=== PATIENT | female | born 1960 | race African-American/Black ===

== ENCOUNTER → 2018-04-16 19:34 | Outpatient (CLI) | payer OTHER ==
[2010-11-14 11:49] VITALS: BMI 38.0
== END | disposition home or self-care (01) ==
LOC: D.MAMMO 03-29 16:00
DX: Z12.31 Encounter for screening mammogram for malignant neoplasm of breast (principal)

== ENCOUNTER → 2019-06-03 08:18 | Outpatient (CLI) | payer MEDICARE, MEDICAID ==
[2010-11-14 11:49] VITALS: BMI 38.0
== END | disposition home or self-care (01) ==
LOC: D.HCCECHO 08:18
PROVIDERS: ATTEND Internal Medicine Cardiovascular Disease
DX: I10 Essential (primary) hypertension (principal); I20.9 Angina pectoris, unspecified

== ENCOUNTER 2019-06-25 11:01 | Outpatient (CLI) | payer MEDICARE, MEDICAID ==
[~2019-06-25] VITALS: Ht 167.6 cm; Wt 87.3 kg
--- NOTE | ~2019-06-25 | HEMODYNAMI ---
PATIENT:REESE MARINA MEDICAL RECORD: [id number] : 58 LOCATION:[facility] ADMISSION DATE: 06/25/19 Generatedon:06/25/201915:39 Patient name: REESE MARINA Patient #: [id number] SSN: : 1960 Date of study: 06/25/2019 Page: Of Hemodynamic Procedure Report Patient Data Patient Demographics Procedure consent was obtained First Name: REESE Gender: Female Last Name: SALAS : 1960 Middle Initial: JANINA Age: 59 year(s) Patient #: [id number] Race: Black Additional ID: [id number] Contact details [address]: [address] [place] [address] State: [place] City: [place] Zip code: [address] Past Medical History Allergies Allergen Reaction Date Comments Reported Other allergy 06/25/2019 IODINE, MOTRIN, PCN Admission Admission Data Admission Date: 06/25/2019 Admission Time: 11:01 Arrival Date: 06/25/2019 Arrival Time: 0:00 Height (in.): 66 BSA: 2.11 (m2) Height (cm.): 167.64 BMI: 36.48 (kg/m2) Weight (lbs.): 226 Weight (kg.): 102.51 Lab Results Lab Result Date: 06/25/2019 Lab Result Time: 0:00 Biochemistry Name Units Result Min Max BUN mg/dl 33 --(----)-* 7 18 Creatinine mg/dl 1.8 --(----)-* 0.6 1.3 eGFR ml/min 37 *-(----)-- 90 120 AM CBC Name Units Result Min Max Hematocrit % 37.2 *-(----)-- 42 54 Hemoglobin g/dl 12.4 *-(----)-- 13.5 17.5 Procedure Procedure Types Cath Procedure Diagnostic Procedure [facility] w/Coronaries Sedation Charges Moderate Sedation up to 15 minutes Moderate Sedation up to 30 minutes PCI Procedure Coronary Stent Coronary Stent Initial Procedure Description Procedure Date Procedure Date: 06/25/2019 Procedure Start Time: 15:10 Procedure End Time: 15:37 Procedure Staff Name Function Lucio Colbert MD Performing Physician Daysi Welch RT Monitor Sarai Hodge RT Scrub Drew Rowley RN Nurse Procedure Data Cath Procedure Fluoroscopy Diagnostic fluoroscopy Total fluoroscopy Time: 4.6 time: 4.6 min min Diagnostic fluoroscopy Total fluoroscopy dose: dose: 1275 mGy 1275 mGy Contrast Material Contrast Material Type Amount (ml) Isovue 300 103 Entry Location Entry Primary Successful Side Size Upsize Upsize Entry Closure Succes sful Closure Location (Fr) 1 (Fr) 2 (Fr) Remarks Device Remarks Femoral Right 5 Fr 6 Fr Exoseal artery Short Estimated blood loss: 10 ml Diagnostic catheters Device Type Used For End Catheter Placement MULTIPACK JL 4.0 5Fr Procedure catheter MULTIPACK 3DRC 5Fr Procedure catheter MULTIPACK Pigtail 5 Fr Ventriculography catheter Procedure Complications No complications Procedure Medications Medication Administration Route Dosage Oxygen etCO2 Nasal cannula 2 l/min Lidocaine 2% added to field 20 Heparin Flush Bag added to field 2 bags (1000units/500ml NS) 0.9% NaCl I.V. 100 ml/hr Versed I.V. 1 mg Fentanyl I.V. 50 mcg Versed I.V. 1 mg Fentanyl I.V. 50 mcg Heparin Bolus I.V. 8500 units Fentanyl I.V. 50 mcg Plavix P.O. 600 mg Clonidine P.O. 0.1 mg Hemodynamics Rest BSA: 2.11 (m2) HGB: 12.4 (g/dl) O2 Consumption: Estimated: 286.96 (ml/min) O2 Co nsumption indexed: Estimated:136 (ml/min/m) Heart Rate: 0 (bpm) Pressure Samples Time Site Value (mmHg) Purpose Heart Use Rate(bpm) 15:16 LV 203/-4,13 Snapshot 75 15:16 LV 204/-4,11 Snapshot 75 15:17 AO 200/91(136) Pullback 75 15:17 LV 203/-5,13 Pullback 75 Gradients Valve Time Site 1 Site 2 Mean SEP/DFP Peak To Heart Use (mmHg) (sec/min) Peak Rate (mmHg) (bpm) Aortic 15:17 LV AO 11 19 3 75 203/-5,13 200/91(136) Calculations Valve P-P Mean Valve Index Valve Source Name Gradient Area Flow (cm2) Aortic 3 11 3 11 Snapshots Pre Cath Intra NCS Post Cath Vital Signs Time Heart Resp SPO2 etCO2 NIBP (mmHg) Rhythm Pain Sedation Rate (ipm) (%) (mmHg) Status Level (bpm) 15:03:40 66 10 99 28.1 200/96(156) NSR 0 (11) 10(A) , No pain 15:08:10 61 17 96 31.9 191/93(152) NSR 0 (11) 10(A) , No pain 15:13:44 73 10 96 38.1 198/102(154) NSR 0 (11) 10(A) , No pain 15:18:18 75 5 97 38.8 203/102(157) NSR 0 (11) 10(A) , No pain 15:22:49 71 19 96 39.6 187/91(135) NSR 0 (11) 10(A) , No pain 15:27:17 75 17 96 40.3 179/98(148) NSR 0 (11) 10(A) , No pain 15:32:57 87 13 98 38 213/112(139) NSR 0 (11) 10(A) , No pain 15:37:42 82 8 97 34.3 219/111(178) NSR 0 (11) 10(A) , No pain Medications Time Medication Route Dose Verified Delivered Reason Notes Effectiveness by by 15:01:17 Oxygen etCO2 2 Lucio Buffie used for Nasal l/min Filemon Rowley RN procedure cannula 15:01:25 Lidocaine 2% added 20ml Lucio Lucio for local to vial Filemon Colbert MD anesthetic field 15:01:32 Heparin Flush added 2 Lucio Lucio used for Bag to bags Filemon Colbert MD procedure (1000units/500ml field NS) 15:01:41 0.9% NaCl I.V. 100 Lucio Buffie Per physician ml/hr Filemon Rowley RN 15:07:11 Versed I.V. 1 mg Lucio Buffie for sedation Filemon Rowley RN 15:07:17 Fentanyl I.V. 50 Lucio Buffie for sedation mcg Filemon Rowley RN 15:11:25 Versed I.V. 1 mg Lucio Buffie for sedation Filemon Rowley RN 15:11:30 Fentanyl I.V. 50 Lucio Buffie for sedation mcg Filemon Rowley RN 15:18:33 Fentanyl I.V. 50 Lucio Buffie for sedation mcg Filemon Rowley RN 15:21:27 Heparin Bolus I.V. 8500 Lucio Buffie for units Filemon Rowley RN anticoagulation 15:36:16 Plavix P.O. 600 Lucio Buffie for mg Filemon Rowley RN antiplatelet therapy 15:39:16 Clonidine P.O. 0.1 Lucio Buffie for mg Filemon oRwley RN hypertension Procedure Log Time Note 14:40:25 Drew Rowley RN sent for patient. Start room use. 14:46:01 Informed consent obtained and on chart 14:46:19 Procedure Status Elective Heart Cath (OP). 14:46:21 Time tracking: Regular hours (M-F 7:00 - 5:00) 14:46:23 Plan of Care:Hemodynamics will remain stable., Cardiac rhythm will remain stable., Comfort level will be maintained., Respiratory function will remain adequate., Patient/ family verbilizes understanding of procedure., Procedure tolerated without complication., Recovers from procedure without complications.. 14:46:47 H&P Date Dictated: 05/16/2019 Within 30 days and on chart., H&P Addendum completed by physician on day of procedure. (MUST COMPLETE FOR ALL OUTPATIENTS). 14:47:02 Patient allergic to Other allergyIODINE, MOTRIN, PCN 14:49:01 Lab Result : BUN 33 mg/dl 14:49:01 Lab Result : Creatinine 1.8 mg/dl 14:49:01 Lab Result : eGFR AM 37 ml/min 14:49:01 Lab Result : Hemoglobin 12.4 g/dl 14:49:01 Lab Result : Hematocrit 37.2 % 14:51:26 Risk of Mortality: .5 14:51:29 Risk of blood transfusion: .7 14:51:32 Risk of JOSH: 3.8 14:51:52 Patient Weight : 226 lbs 14:51:57 Patient Height : 66 inches 14:51:59 Arrival Date: 06/25/2019 12:00:00 AM 14:54:40 Patient received from Pre/Post Procedure Room to [facility] 2 Alert and oriented. Tansferred to table in Supine position. 14:54:42 Warm blankets applied, and tati hugger turned on for patient comfort. 14:54:42 Correct patient and procedure confirmed by team. 14:54:42 ECG and BP/O2 sat monitors applied to patient. 15:01:17 Oxygen 2 l/min etCO2 Nasal cannula was administered by Drew Rowley RN; used for procedure; Verbal order read back and verified. 15:01:20 Vital chart was started 15::23 Baseline sample Acquired. 15::25 Lidocaine 2% 20ml vial added to field was administered by Lucio Colbert MD; for local anesthetic; Verbal order read back and verified. 15::25 Baseline sample Acquired. 15:01:32 Heparin Flush Bag (1000units/500ml NS) 2 bags added to field was administered by Lucio Colbert MD; used for procedure; Verbal order read back and verified. 15:01:41 0.9% NaCl 100 ml/hr I.V. was administered by Drew Rowley RN; Per physician; Verbal order read back and verified. 15:01:44 Baseline sample Acquired. 15:02:10 Rhythm: sinus rhythm 15:02:11 Full Disclosure recording started 15:02:14 Family in patients room. 15:02:19 Is the patient allergic to Iodine/contrast media? Yes. 15:02:20 Was the patient premedicated? Yes 15:02:23 Is patient on blood thinner?No 15:02:36 Patient diabetic? Yes. 15:02:40 Snore? Yes 15:02:44 Sleep apnea? Unknown 15:02:52 Airway obstruction? Yes asthma 15:02:59 Dentures? Yes patials tight 15:03:04 Patient pain scale 0/10 ?. 15:03:09 IV patent on arrival in right forearm with 0.9% NaCl at [facility]. 15:03:14 Lab results completed and on chart. 15:03:19 Right groin area was prepped with chlora-prep and draped in sterile fashion 15::22 Alarms reviewed by R. N. 15:03:22 Sharps counted by scrub and verified by R.N. 15::23 Physician paged 15:03:24 Physician arrived 15::25 --------ALL STOP TIME OUT------ 15:: Final Timeout: patient, procedure, and site verified with staff and physician. All members of the team are in agreement. 15:03:29 Right groin site verified by team. 15:03:33 Fire Safety Assessment: A--An alcohol-based skin anteseptic being used preoperatively., C--Open oxygen or nitrous oxide is being used., D--An ESU, laser, or fiber-optic light is being used. 15:03:38 Sedation plan: IV Moderate Sedation Medication:Versed, Fentanyl 15:03:42 Use device set Femoral Dx 15:04:04 ACIST Syringe (26828) opened to sterile field. 15:04:05 Bag Decanter (2002S) opened to sterile field. 15:04:05 Medline Cath Pack ([id number]) opened to sterile field. 15:04:06 ACIST Hand Control (44302) opened to sterile field. 15:04:06 ACIST Manifold (44888) opened to sterile field. 15:04:07 DIAGNOSTIC Multipack 5Fr catheter set (HX9464) opened to sterile field. 15:04:09 Tegaderm 4 x 4 (1626W) opened to sterile field. 15:04:31 SHEATH 5FR Tyler (PKD185) opened to sterile field. 15:04:36 EMERALD Guide Wire (016-848) opened to sterile field. 15:07:11 Versed 1 mg I.V. was administered by Drew Rowley RN; for sedation; Verbal order read back and verified. 15:07:16 Procedure started. 15:07:17 Fentanyl 50 mcg I.V. was administered by Drew Rowley RN; for sedation; Verbal order read back and verified. 15:10:25 Local anesthetic to right femoral artery with Lidocaine 2% by Lucio Colbert MD.INITIAL ACCESS ONLY 15:10:34 A 5 Fr sheath was inserted into the Right Femoral artery 15:11:07 A MULTIPACK JL 4.0 5Fr catheter was advanced over the wire and used for Procedure. 15:11:09 LCA angiography performed. 15:11:25 Versed 1 mg I.V. was administered by Drew Rowley RN; for sedation; Verbal order read back and verified. 15:11:30 Fentanyl 50 mcg I.V. was administered by Drew Rowley RN; for sedation; Verbal order read back and verified. 15:12:41 Catheter removed. 15:12:48 A MULTIPACK 3DRC 5Fr catheter was advanced over the wire and used for Procedure. 15:13:33 RCA angiography performed. 15:15:10 TUBING High Pressure Extension Tubing (Colbert) ([id number]) opened to sterile field. 15:15:12 BMW 300cm [place] 2 J wire ([id number]) opened to sterile field. 15:15:13 INFLATOR Merit BasixCompak (PT7155) opened to sterile field. 15:15:19 SHEATH 6FR Tyler (GFV946) opened to sterile field. 15:15:28 Catheter removed. 15:15:45 A MULTIPACK Pigtail 5 Fr catheter was advanced over the wire and used for Ventriculography. 15:16:14 GUIDE 6FR XBLAD 3.5 catheter ([id number]) opened to sterile field. 15:16:50 EF : 55 % 15:17:10 LV gram done using [place] 15:17:14 Catheter removed. 15:17:22 Proceeding to intervention. 15:17:30 Sheath upsized to a 6 Fr Short. 15:18:33 Fentanyl 50 mcg I.V. was administered by Drew Rowley RN; for sedation; Verbal order read back and verified. 15:18:54 6 Fr XBLAD3.5 guide catheter was inserted over the wire 15:19:25 BMW wire advanced. 15:21:27 Heparin Bolus 8500 units I.V. was administered by Drew Rowley RN; for anticoagulation; Verbal order read back and verified. 15:30:16 Place stent Inflation Number: 1 A ESTHER RX 3.0 x 15 stent ([id number]) was prepped and advanced across the Prox LAD 80. The stent was deployed at 16 YAIR for 0:15 (min:sec) 0. 15:31:59 EXOSEAL 6Fr (EX600) opened to sterile field. 15:32:15 ACT drawn and resulted at 322 seconds. (normal therapeutic range 180-240 seconds). 15:32:30 Sheath removed intact; hemostasis achieved with Exoseal to the Right Femoral artery. 15:32:34 Procedure ended.(Physican Out) 15:34:05 Fluoroscopy time 04.60 minutes. 15:34:10 Fluoroscopy dose: 1275 mGy 15:34:10 Flurop Dose total: 1275 15:34:15 Dose Area Product 79522 mGy/cm. 15:34:24 Contrast amount:Isovue 300 103ml. 15:34:29 Maximum allowable dose exceeded? No. 15:34:30 Sharps counted by scrub and verified by R.N. 15:34:33 Insertion/operative site no bleeding no hematoma. 15:35:14 Post right femoral artery:stable 15:35:16 Post Procedure Pulses reassessed and unchanged 15:35:19 Post procedure rhythm: unchanged. 15:35:23 Estimated blood loss: 10 ml 15:35:27 Post procedure instruction explained to patient.Patient verbalizes understanding. 15:35:58 Procedure type changed to Cath procedure, Diagnostic procedure, LHC, [facility] w/Coronaries, Sedation Charges, Moderate Sedation up to 15 minutes, Moderate Sedation up to 30 minutes, PCI procedure, Coronary Stent, Coronary Stent Initial 15:36:02 Procedure and supply charges have been captured, reviewed, submitted and are correct. 15:36:16 Plavix 600 mg P.O. was administered by Drew Rowley RN; for antiplatelet therapy; Verbal order read back and verified. 15:36:52 Procedure Complication : No complications 15:36:56 Vital chart was stopped 15:37:02 [facility] Findings: MVD- PCI performed (see procedure note) 15:37:04 Operative report dictated upon procedure completion. 15:37:05 See physician's report for complete and final results. 15:37:07 Report given to Pre/Post Procedure Room. 15:37:10 Patient transfered to Pre/Post Procedure Room with Stretcher. 15:37:12 Procedure ended. 15:37:12 Full Disclosure recording stopped 15:37:29 ACC-PCI Only Patient was given prescriptions, or instructed by Lucio Colbert MD to start/continue the following medications upon discharge: Plavix 15:37:32 End room use (Document Last) 15:38:37 End room use (Document Last) 15:39:03 End room use (Document Last) 15:39:16 Clonidine 0.1 mg P.O. was administered by Drew Rowley RN; for hypertension; Verbal order read back and verified. Intervention Summary Intervention Notes Time ActionType Lesion and Equipment Used Action# Pressure Duration Attributes 15:30:[address] stent Prox LAD ESTHER RX 3.0 x 1 16 00:15 15 stent ([id number]) Device Usage Item Name Manufacture Quantity Catalog Hospital Part [facility] Lot# / Number Charge Number Stock Stock Serial# Code ACIST Syringe Acist 1 55426 020555 046457 292681 20 (27794) Medical Systems Inc Bag Decanter Microtek 1 2001S 067689 06620 391407 5 () Medical Inc. Medline Cath Medline 1 [id number] 850895 26617 420772 5 Pack ([id number]) ACIST Hand Acist 1 07985 922850 620375 635454 5 Control Medical (83823) Systems Inc ACIST Manifold Acist 1 88150 809195 334783 474578 5 (18886) Medical Systems Inc DIAGNOSTIC Cardinal 1 [id number] 946049 48504 016398 30 Multipack 5Fr Health catheter set (HB0885) Tegaderm 4 x 4 3M 1 1626W 191454 502459 233108 5 (1626W) SHEATH 5FR Terumo 1 CNY398 944276 604423 645869 5 Tyler (NNF798) EMERALD Guide Cardinal 1 502-455 315634 564394 363411 5 Wire (502-455) Health MULTIPACK JL Cardinal 1 992963 5 4.0 5Fr Health catheter MULTIPACK 3DRC Cardinal 1 804671 5 5Fr catheter Health TUBING High Merit 1 [id number] 135597 73294 513409 10 Pressure Medical Extension Tubing (Colbert) (AY9346F) BMW 300cm Gracia 1 [id number] 337831 170855 483781 5 [place] 2 J Vascular wire (1949201B) INFLATOR Merit Merit 1 QJ6069 256597 214992 007790 15 BasixCompak Medical (PQ8736) SHEATH 6FR Terumo 1 FCW453 668913 081750 823705 40 Tyler (PNU488) MULTIPACK Cardinal 1 319333 5 Pigtail 5 Fr Health catheter GUIDE 6FR Cardinal 1 [id number] 404067 531353 060595 10 XBLAD 3.5 Health catheter ([id number]) ESTHER RX 3.0 x Medtronic 1 [id number] 809666 9267924 558817 5 [id number] 15 stent ([id number]) EXOSEAL 6Fr Cardinal 1 EX600 488403 615298 842915 10 (EX600) Health Signature Audit [place] Stage Time Signature Unsigned Intra-Procedure 06/25/2019 Daysi Welch 3:38:38 PM RT(R) Intra-Procedure 06/25/2019 Drew Rowley RN 3:39:03 PM Intra-Procedure 06/25/2019 Lucio Colbert MD 3:39:41 PM Signatures Performing Physician : Signature : Lucio Colbert MD Date : Time : Monitor : Daysi Welch Signature : RT Date : Time : Nurse : Drew Rowley RN Signature : Date : Time : [address] [place] [address]
[2019-06-25] MEDS ORDERED: LIPITOR10 MG PO (11:29)
[2019-06-25] MEDS ORDERED: CATAPRES0.2 MG PO (11:29)
[2019-06-25] MEDS ORDERED: CATAPRES TTS-10.1 MG TD (11:30)
[2019-06-25] MEDS ORDERED: PREDNISONE20 MG PO (11:31)
[2019-06-25] MEDS ORDERED: FUROSEMIDE20 MG PO (11:31)
[2019-06-25] MEDS ORDERED: HYDRALAZINE HCL10 MG PO (11:31)
[2019-06-25] MEDS ORDERED: ZANAFLEX4 MG PO (11:32)
[2019-06-25] MEDS ORDERED: HYZAAR 50-12.51 TAB PO (11:32)
[2019-06-25] MEDS ORDERED: HUMALOG 30100 UNITS/ SC (11:33)
[2019-06-25] MEDS ORDERED: LEVEMIR FL100 UNIT/1 SC (11:34)
[2019-06-25 11:49] VITALS: BP 198/77; Ht 167.6 cm; Wt 87.3 kg
[2019-06-25 12:09] LABS: BASOPHILS 0.1 % (0-2); EOSINOPHILS 0 % (0-7); HEMATOCRIT 37.2 % (36.0-48.0); HEMOGLOBIN 12.4 g/dL (12-16); IMMATURE GRANULOCYTES 0.5 % (0-5); LYMPHOCYTES 7.9 % (15-50); MCH 27.2 pg (26.0-34.0); MCHC 33.3 g/dL (31.0-37.0); MCV 81.6 fL (80.0-100.0); MEAN PLATELET VOLUME 10.5 fL (7.4-10.4); MONOCYTES 0.9 % (2-11); NEUTROPHILS 90.6 % (40-80); RBC 4.56 10x6/uL (4.00-5.40); RDW 13.7 % (11.5-14.5); WBC 9.5 10x3/uL (4.8-10.8)
[2019-06-25 12:10] LABS: PLATELET COUNT 329 10x3/uL (130-400)
[2019-06-25 12:36] LABS: ANION GAP 15.1 mmol/L (8-16); CALCIUM 9.1 mg/dL (8.5-10.1); CARBON DIOXIDE 23.5 mmol/L (21.0-32.0); CHOL - HDL RATIO 4.1 ratio (2.3-4.1); CREATININE - SERUM 1.8 mg/dL (0.6-1.3); LDL-HDL RATIO 2.9 ratio (1.5-3.5); POTASSIUM - SERUM 4.6 mmol/L (3.5-5.1)
--- NOTE | 2019-06-25 15:55 | NUR ---
REC TO ROOM VIA STRETCHER. MONITORING INITIATED. R GROIN SOFT, NO BLEEDING OR HEMATOMA. RPPP. INSTRUCTED TO KEEP LEG STRAIGHT AND STILL, HEAD ON PILLOW, AND TO SUPPORT R GROIN W HAND WHEN COUGHING. PEGGY SIPS OF WATER. DTR AT BEDSIDE. VSS, HR 91, BP 214/112 AND WAS MEDICATED W CLONIDINE AT 1545 IN GRADUATE RECRUITER. CONT TO MONITOR.
--- NOTE | 2019-06-25 16:10 | NUR ---
R GROIN CDI, SOFT. NO BLEEDING OR HEMATOMA. PPP. INSTRUCTED PT AND FAMILY THAT BLOOD GLUCOSE MAY BE MANAGED AT HOME. BED REPOSITIONED FOR RELIEF OF BACK DISCOMFORT BY RAISING KNEES MECHANICALLY. VSS, HR 77, BP 210/102.
--- NOTE | 2019-06-25 16:40 | NUR ---
R GROIN CDI, SOFT. NO BLEEDING OR HEMATOMA. PPP. CONT TO C/O BACK PAIN STATES IS HER CHRONIC PAIN, SEE EMAR.
--- NOTE | 2019-06-25 16:55 | NUR ---
R GROIN CDI, SOFT. NO BLEEDING OR HEMATOMA. PPP. HR 66, NIBP 197/93.
--- NOTE | 2019-06-25 17:11 | NUR ---
R GROIN CDI, SOFT. NO BLEEDING OR HEMATOMA. PPP. VSS, HR 65 NSR, BP 180/84. FAMILY AT BEDSIDE, ASSISTING W DRINKING AND APPLESAUCE.
[2019-06-25] MEDS ORDERED: PLAVIX75 MG PO (17:19)
--- NOTE | 2019-06-25 17:40 | NUR ---
R GROIN CDI, SOFT. NO BLEEDING OR HEMATOMA. PPP. VSS, HR NSR 67, NIBP 185/87. STATES CHRONIC BACK PAIN IMPROVED AFTER PAIN MED.
--- NOTE | 2019-06-25 18:20 | NUR ---
C/O DISCOMFORT L SHOULDER, LOW BACK. REPOSITIONED W HOB UP 15*. R GROIN SOFT, NO BLEEDING/HEMATOMA.
--- NOTE | 2019-06-25 18:39 | NUR ---
HOB UP TO 20*. PROVIDED SANDWICH AND DIET SODA. PT CHECKING FSBS, 349. DOSING W HOME HUMALOG [address] MAGANA'S ORDER TO TREAT AT HOME. R GROIN SOFT, CDI, NO BLEEDING OR HEMATOMA. PPP. HR NSR 64, NIBP 176/86.
--- NOTE | 2019-06-25 19:28 | NUR ---
191 PT GROIN SOFT, NONTENDER, CDI. NO BLEEDING OR HEMATOMA.IV DC TIP INTACT, MONITORING DISCONTINUED. ASSISTED TO SIDE OF BED, DTR ASSISTED TO DRESS. 1919 WALKED W PT TO RESTROOM, BACK TO ROOM. 1927 DISCHARGE TEACHING REVIEWED INCLUDING PLAVIX NEW DAILY MEDICATION AND F/U APPT WITH DR MAGANA/JUAN J MATTHEWS APN. PT DC HOME VIA PRIVATE CAR W DTR, PT HAS ALL BELONGINGS.
== END 2019-06-25 19:30 | disposition home or self-care (01) ==
LOC: D.CATH 11:01
PROVIDERS: ATTEND Internal Medicine Cardiovascular Disease
DX: I20.9 Angina pectoris, unspecified (principal); R94.30 Abnormal result of cardiovascular function study, unspecified; Z01.818 Encounter for other preprocedural examination; E11.9 Type 2 diabetes mellitus without complications; Z79.4 Long term (current) use of insulin; I10 Essential (primary) hypertension; R07.9 Chest pain, unspecified; R94.31 Abnormal electrocardiogram [ECG] [EKG]

== ENCOUNTER 2019-07-31 19:55 | Inpatient (IN) | payer MEDICARE, MEDICAID ==
[2019-07-31] VITALS (12 sets, daily range): BP systolic 204–266; BP diastolic 83–121; BMI 36.3
[~2019-07-31] VITALS: Ht 167.6 cm; Wt 101.7 kg
[~2019-07-31 19:55] MED LIST: CATAPRES TTS-10.1 MG TD; CATAPRES0.2 MG PO; FUROSEMIDE20 MG PO; HUMALOG 30100 UNITS/ SC; HYDRALAZINE HCL10 MG PO; HYZAAR 50-12.51 TAB PO; LEVEMIR FL100 UNIT/1 SC; LIPITOR10 MG PO; PLAVIX75 MG PO; PREDNISONE20 MG PO; ZANAFLEX4 MG PO
[2019-07-31] MEDS ORDERED: TOPROL XL50 MG PO (20:08)
[2019-07-31] MEDS ORDERED: LIPITOR10 MG PO (20:08)
[2019-07-31] MEDS ORDERED: NORVASC10 MG PO (20:09)
[2019-07-31] MEDS ORDERED: VICTOZA0.6 MG/0.1 SQ (20:11)
--- NOTE | 2019-07-31 20:22 | NUR ---
FSBS 88 AT THIS TIME. EDP NOTIFIED.
[2019-07-31 20:28] LABS: BASOPHILS 0.5 % (0-2); EOSINOPHILS 10.2 % (0-7); HEMATOCRIT 35.2 % (36.0-48.0); HEMOGLOBIN 11.5 g/dL (12-16); IMMATURE GRANULOCYTES 0.1 % (0-5); LYMPHOCYTES 40.8 % (15-50); MCH 26.8 pg (26.0-34.0); MCHC 32.7 g/dL (31.0-37.0); MCV 82.1 fL (80.0-100.0); MEAN PLATELET VOLUME 10.1 fL (7.4-10.4); NEUTROPHILS 39.4 % (40-80); PLATELET COUNT 266 10x3/uL (130-400); RBC 4.29 10x6/uL (4.00-5.40); RDW 13.9 % (11.5-14.5); WBC 7.4 10x3/uL (4.8-10.8)
[2019-07-31 20:37] LABS: CALC OSMOLALITY 284 mosm/kg (275-300); CARBON DIOXIDE 26.3 mmol/L (21.0-32.0); CHLORIDE - SERUM 105 mmol/L (98-107); CREATININE - SERUM 1.9 mg/dL (0.6-1.3); POTASSIUM - SERUM 3.6 mmol/L (3.5-5.1); SODIUM 140 mmol/L (136-145); UREA NITROGEN 30 mg/dL (7-18); eGFR NON AFRICAN AMERICAN 28 mL/min (90-120)
[2019-07-31 20:39] LABS: GLUCOSE 91 mg/dL (74-106)
[2019-07-31 20:49] LABS: APTT 28.2 SECONDS (22.8-39.4); INR 0.96 (0.85-1.17); PROTIME 12.8 SECONDS (11.6-15.0)
--- NOTE | 2019-07-31 20:59 | NUR ---
FSBS 72 AT THIS TIME. EDP NOTIFIED
[2019-07-31 21:00] LABS: ALBUMIN 3.2 g/dL (3.4-5.0); ALKALINE PHOSPHATASE 85 U/L (46-116); ALT (SGPT) 23 U/L (10-68); BILIRUBIN - TOTAL 0.25 mg/dL (0.2-1.3); CKMB 0.5 U/L (0.0-3.6); CREATINE KINASE 69 UL (21-215); PROTEIN - SERUM 7.2 g/dL (6.4-8.2); THYROID STIMULATING HORMONE 2.09 uIU/mL (0.36-3.74)
[2019-07-31 21:02] LABS: TROPONIN-I < 0.017 ng/mL (0.000-0.060)
--- NOTE | 2019-07-31 23:20 | NUR ---
REPORT RECEIVED. PT ARRIVED TO ICU ACCOMPANIED BY ER STAFF. PIV IN RT AC AND LT WRIST INFUSING, SEE IV FLOWSHEET. ASSESSMENT COMPLETED, SEE FLOWSHEET. PT ON ROOM AIR, C/O HEADACHE, N&V. WILL CONTINUE TO MONITOR.
[2019-08-01] VITALS (40 sets, daily range): BP systolic 137–246; BP diastolic 65–121; Ht 167.6 cm; Wt 101.7 kg
--- NOTE | 2019-08-01 01:00 | NUR ---
PT RESTING IN BED, CONTINUES TO HAVE C/O HEADACHE. FAMILY IN WAITING ROOM, UPDATED ON STATUS. WILL CONTINUE TO MONITOR.
--- NOTE | 2019-08-01 03:00 | NUR ---
DR CRUZ PAGED REGARDING BP, UPDATED ON STATUS, NEW ORDERS RECEIVED.
--- NOTE | 2019-08-01 05:00 | NUR ---
PT RESTING IN BED, HEADACHE STILL PRESENT. WILL CONTINUE TO MONITOR AND TREAT.
[2019-08-01 12:14] LABS: % SATURATION 19 % (15-55); IRON 44 ug/dl (35-150); TOTAL IRON BIND CAPACITY 231 ug/dl (260-445); UNSAT IRON BIND CAPACITY 187 ug/dl (150-375)
--- NOTE | 2019-08-01 16:47 | NUR ---
LEFT HAND PIV REMOVED. NO LONGER PATENT. TIP INTACT. PT ASSISTED UP TO URINATE. SAMPLE OBTAINED.
[2019-08-01 17:44] LABS: APPEARANCE SL CLDY (CLEAR); BILIRUBIN NEGATIVE (NEGATIVE); COLOR YELLOW (YELLOW); GLUCOSE 1000 mg/dL (NEGATIVE); KETONE NEGATIVE (NEGATIVE); NITRITE NEGATIVE (NEGATIVE); PROTEIN 1+ mg/dL (NEGATIVE); SPECIFIC GRAVITY 1.025 (1.005-1.020); UROBILINOGEN NORMAL (NORMAL)
[2019-08-01 17:46] LABS: BACTERIA MANY /hpf (NEGATIVE); RED CELLS - URINE RARE /hpf (0-5); WHITE CELLS - URINE 0-5 /hpf (NEGATIVE)
[2019-08-01 17:57] LABS: UDS - AMPHET NEGATIVE QUAL (NEGATIVE); UDS - BARB NEGATIVE QUAL (NEGATIVE); UDS - BENZO NEGATIVE QUAL (NEGATIVE); UDS - COCAINE NEGATIVE QUAL (NEGATIVE); UDS - OPIATE POSITIVE QUAL (NEGATIVE); UDS - PCP NEGATIVE QUAL (NEGATIVE); UDS - THC NEGATIVE QUAL (NEGATIVE)
--- NOTE | 2019-08-01 20:07 | NUR ---
report called to maral on med2. room being cleaned at this time.
[2019-08-02] VITALS: BP 172/64
[2019-08-02 04:00] VITALS: BP 178/69
--- NOTE | 2019-08-02 05:01 | NUR ---
PT CALLED TO SAY SHE FELT LIKE HER SUGAR WAS LOW. FSBS 154. PT GIVEN SNACK. NO S/S INSULIN WILL BE ADMINISTERED SINCE PT IS SYMPTOMATIC AT LESS THAN 200MG.
[2019-08-02 08:24] LABS: BASOPHILS 0.1 % (0-2); EOSINOPHILS 5.1 % (0-7); HEMATOCRIT 32.1 % (36.0-48.0); HEMOGLOBIN 10.6 g/dL (12-16); IMMATURE GRANULOCYTES 0.6 % (0-5); LYMPHOCYTES 23.5 % (15-50); MCH 26.6 pg (26.0-34.0); MCV 80.7 fL (80.0-100.0); MEAN PLATELET VOLUME 10.2 fL (7.4-10.4); MONOCYTES 8.3 % (2-11); NEUTROPHILS 62.4 % (40-80); PLATELET COUNT 187 10x3/uL (130-400); RBC 3.98 10x6/uL (4.00-5.40)
[2019-08-02 08:54] VITALS: BP 178/68
[2019-08-02 08:59] LABS: ANION GAP 16.7 mmol/L (8-16); CALCIUM 8.7 mg/dL (8.5-10.1); CARBON DIOXIDE 22.9 mmol/L (21.0-32.0); CREATININE - SERUM 2.4 mg/dL (0.6-1.3); POTASSIUM - SERUM 4.6 mmol/L (3.5-5.1)
[2019-08-02 12:00] VITALS: BP 179/74
[2019-08-02 16:00] VITALS: BP 176/69
--- NOTE | 2019-08-02 20:00 | NUR ---
REPORT RECIEVED AND INITIAL ROUNDS COMPLETED. PT RESTING IN BED WITH NO DISTRESS. IV TO LEFT A/C WITH NS @ 75ML/HR. SR/60 PER TELEMETRY. ALERT/ORIENTED. NO NEEDS VOICED. CALL LIGHT IN REACH. CPOC.
[2019-08-02 20:30] VITALS: BP 177/79
--- NOTE | 2019-08-02 23:00 | NUR ---
ALL BEDTIME MEDS HAVE BEEN GIVEN. PT RESTING. IVF INFUSING. FSBS 155. NO INSULIN GIVEN SINCE PATIENT FEELS SYMPTOMATIC WHEN LEVELS ARE BELOW 2000. BEDTIME SNACK PROVIDED. CPOC. CALL LIGHT IN REACH.
--- NOTE | 2019-08-03 02:00 | NUR ---
RESTING IN BED. NO DISTRESS. CPOC.
[2019-08-03 04:27] VITALS: BP 195/81
--- NOTE | 2019-08-03 05:15 | NUR ---
RESTING IN BED. NO DISTRESS. CPOC. NO CHANGE FROM INITIAL SHIFT ASSESSMENT.
[2019-08-03 05:39] LABS: BASOPHILS 0.5 % (0-2); EOSINOPHILS 9.5 % (0-7); HEMATOCRIT 30.4 % (36.0-48.0); HEMOGLOBIN 10.1 g/dL (12-16); IMMATURE GRANULOCYTES 0.2 % (0-5); LYMPHOCYTES 27.2 % (15-50); MCH 27.1 pg (26.0-34.0); MCHC 33.2 g/dL (31.0-37.0); MCV 81.5 fL (80.0-100.0); MEAN PLATELET VOLUME 10.1 fL (7.4-10.4); MONOCYTES 9.8 % (2-11); NEUTROPHILS 52.8 % (40-80); RBC 3.73 10x6/uL (4.00-5.40); RDW 14.1 % (11.5-14.5); WBC 5.9 10x3/uL (4.8-10.8)
[2019-08-03 05:42] LABS: PLATELET COUNT 256 10x3/uL (130-400)
[2019-08-03 06:10] LABS: ANION GAP 12.6 mmol/L (8-16); CALCIUM 8.8 mg/dL (8.5-10.1); CARBON DIOXIDE 25.7 mmol/L (21.0-32.0); CREATININE - SERUM 1.9 mg/dL (0.6-1.3); POTASSIUM - SERUM 4.3 mmol/L (3.5-5.1)
[2019-08-03 10:48] VITALS: BP 196/81
[2019-08-03 14:25] VITALS: BP 184/73
[2019-08-03 18:27] VITALS: BP 195/71
--- NOTE | 2019-08-03 19:30 | NUR ---
REPORT AND INITIAL ROUNDS COMPLETED. PT ALERT AND ORIENTED. SR PER TELEMETRY. LEFT A/C PIV WITH NS @ 75ML/HR. PT/FAMILY TEACHING FOR THE PROCESS OF ADDING MEDS SLOWLY PER MD TO TRY AND DEVELOP AN APPROPRIATE BLOOD PRESSURE. DAUGHTER STATES PT ALSO HAD FORGOTTEN TO SAY SHE TAKES PROZAC AND HAS NOT HAD IT FOR 4 DAYS. WILL ADD TO HOME MED LIST AND GET RESTARTED BY MD. CALL LIGHT IN REACH.
[2019-08-03 20:00] VITALS: BP 187/84
[2019-08-03] MEDS ORDERED: PROZAC20 MG PO (20:26)
--- NOTE | 2019-08-03 22:44 | NUR ---
ALL BEDTIME MEDS GIVEN. FSBS 214. S/S INSULIN ADMINISTERED. ALSO TYLENOL PROVIDED FOR HEADACHE. CPOC.
--- NOTE | 2019-08-03 22:47 | NUR ---
ALSO PATIENT TEACHING ON TAKING MACROBID FOR UTI AND TO DRINK PLENTY OF WATER.
[2019-08-04] VITALS: BP 182/76
--- NOTE | 2019-08-04 01:21 | NUR ---
PT AWAKE WITH C/O HEADACHE. SBP >180. TYLENOL HAS NOT IMPROVED HER HEADACHE. MEDICATED WITH MORPHINE 4MG SIVP. MONITOR AND CPOC.
[2019-08-04 04:00] VITALS: BP 177/71
[2019-08-04 04:40] LABS: ANION GAP 13.4 mmol/L (8-16); CALCIUM 8.8 mg/dL (8.5-10.1); CARBON DIOXIDE 26.1 mmol/L (21.0-32.0); CREATININE - SERUM 1.6 mg/dL (0.6-1.3); POTASSIUM - SERUM 4.5 mmol/L (3.5-5.1)
[2019-08-04 04:41] LABS: BASOPHILS 0.6 % (0-2); EOSINOPHILS 4.9 % (0-7); HEMATOCRIT 33.6 % (36.0-48.0); HEMOGLOBIN 10.9 g/dL (12-16); IMMATURE GRANULOCYTES 0.3 % (0-5); LYMPHOCYTES 19.8 % (15-50); MCH 26.7 pg (26.0-34.0); MCHC 32.4 g/dL (31.0-37.0); MCV 82.2 fL (80.0-100.0); MEAN PLATELET VOLUME 10.3 fL (7.4-10.4); MONOCYTES 8.4 % (2-11); PLATELET COUNT 285 10x3/uL (130-400); RBC 4.09 10x6/uL (4.00-5.40); RDW 14.2 % (11.5-14.5); WBC 7.1 10x3/uL (4.8-10.8)
--- NOTE | 2019-08-04 05:15 | NUR ---
PT WAS C/O PAIN/DISCOMFORT/HEADACHE. SBP BACK >180. WHILE TALKING TO PATIENT, SHE VOMITTED UP PEANUT BUTTER AND CRACKERS THAT SHE HAD ATTEMPTED TO SNACK ON. AFTER THAT SHE SAID HER STOMACH FELT BETTER, BUT HER HEAD WAS STILL HURTING. PROVIDED PT WITH HER 0900 DOSE OF CLONIDINE FOR ELEVATED BP, TYLENOL FOR HEADACHE, PROTONIX FOR STOMACH, AND ZANAFLEX FOR MUSCLE/BODY PAIN/DISCOMFORT. PT NOW RESTING IN BED. CALL LIGHT IN REACH.
[2019-08-04 08:17] VITALS: BP 174/72
--- NOTE | 2019-08-04 08:42 | NUR ---
AM MEDS GIVEN AT THIS TIME. PT IN BED, FINISHING HER BREAKFAST. RT FA INFUISNG NS AT 75CC/HR. SWAB CAPS IN PLACE. PT DENIES ANY NEEDS AT THIS TIME. FAMILY AT BEDSIDE, [facility], ANUSHA NOTED,W ILL CONTINUE PLAN OF CARE.
--- NOTE | 2019-08-04 10:50 | NUR ---
SHOWER AND COMPLETE LINEN CHANGE AT THIS TIME.
[2019-08-04] MEDS ORDERED: BAYER CHEWABLE81 MG PO (11:56)
[2019-08-04 12:01] VITALS: BP 155/74
--- NOTE | 2019-08-04 14:17 | NUR ---
Nutrition Follow-up: Noted pt vomited early AM but ate well for breakfast. Diet: Diabetic Low Sodium PO intake: 63% avg x 7 meals Wt: 224.8# (08/01) Last BM: 08/04 Labs noted: Glu 173, K+ 4.5, A1C 9.9 (08/01) Meds noted: NS @ 75, Humalog, Lantus -Continue current diet as tolerated. -Encourage PO intake. -Monitor wt. -RD following.
[2019-08-04 16:00] VITALS: BP 151/80
--- NOTE | 2019-08-04 16:19 | NUR ---
BLOOD SUGAR OF 76, NO COVERAGE NEEDED PER S/S. ALSO DID NOT GIVE 5UNITS OF HUMALOG SCHEDULED WITH MEALS.
--- NOTE | 2019-08-04 17:06 | NUR ---
4MG OF MORPHINE GIVEN FOR PAIN LEVEL OF 3/10. PT DENIES ANY OTHER NEEDS AT THIS TIME. CALL LIGHT IN REACH, NAD NOTED.
--- NOTE | 2019-08-04 19:17 | NUR ---
RECEIVED BEDSIDE REPORT. PATIENT IS ALERT AND ORIENTED, RESTING COMFORTABLY IN BED. RESPIRATIONS ARE EVEN AND UNLABORED. NO S/S OF DISTRESS. NO C/O PAIN. NEEDS MET. CALL LIGHT WITHIN REACH. WILL CPOC.
[2019-08-04 20:16] VITALS: BP 168/79
[2019-08-05] VITALS (7 sets, daily range): BP systolic 175–203; BP diastolic 69–96
[2019-08-05 06:05] LABS: BASOPHILS 0.4 % (0-2); EOSINOPHILS 5.4 % (0-7); HEMATOCRIT 31.3 % (36.0-48.0); IMMATURE GRANULOCYTES 0.3 % (0-5); LYMPHOCYTES 23.6 % (15-50); MCH 26.4 pg (26.0-34.0); MCHC 31.9 g/dL (31.0-37.0); MCV 82.6 fL (80.0-100.0); MEAN PLATELET VOLUME 10.1 fL (7.4-10.4); MONOCYTES 8.8 % (2-11); NEUTROPHILS 61.5 % (40-80); PLATELET COUNT 295 10x3/uL (130-400); RBC 3.79 10x6/uL (4.00-5.40); RDW 14.5 % (11.5-14.5); WBC 6.9 10x3/uL (4.8-10.8)
[2019-08-05 06:28] LABS: CALCIUM 8.2 mg/dL (8.5-10.1); CARBON DIOXIDE 24.3 mmol/L (21.0-32.0); CHOL - HDL RATIO 2.7 ratio (2.3-4.1); CREATININE - SERUM 1.6 mg/dL (0.6-1.3); LDL-HDL RATIO 1.3 ratio (1.5-3.5); POTASSIUM - SERUM 4.3 mmol/L (3.5-5.1)
--- NOTE | 2019-08-05 07:53 | NUR ---
PT C/O OF FEELING SWEATY AND HOT, CHECKED BLOOD SUGAR AND IT WAS 145. PT DENIES ANY NEEDS AT THIS TIME. CALL LIGHT IN REACH, BEDSIDE RAILS X2, FAMILY AT BEDSIDE, NAD NOTED,W ILL CONTINUE TO MONITOR.
--- NOTE | 2019-08-05 09:40 | NUR ---
AM MEDS GIVEN AT THIS TIME. PT A/O X4, RESP EVEN AND NONLABORED ON RA. RT HAND IV INFUSING NS AT 75CC/HR. PT DENIES ANY NEEDS AT THIS TIME. CALL LIGHT IN REACH, NAD NOTED, WILL CONTINUE TO MONITOR.
--- NOTE | 2019-08-05 14:44 | NUR ---
PT C/O HEADACHE, UNABLE TO TAKE TYLENOL BECASUE SHE IS STILL SICK TO HER STOMACH. 4MG OF MORPHINE GIVEN AT THIS TIME, FOR PAIN LEVEL OF 8/10.
--- NOTE | 2019-08-05 16:12 | NUR ---
BLOOD SUGAR OF 119, NO COVERAGE NEEDED PER S/S. PT STILL HAS HEADACHE DOES NOT WANT TO WEAR NITRO PATCH BECAUSE IT'S MAKING HER HEADACHE WORSE. PT DENIES ANY OTHER NEEDS AT THIS TIME. CALL LIGHT IN REACH, ANUSHA NOTED,W ILL CONTINUE TO MONITOR.
--- NOTE | 2019-08-05 19:27 | NUR ---
RECEIVED BEDSIDE REPORT. PATIENT IS RESTING COMFORTABLY IN BED. RESPIRATIONS ARE EVEN AND UNLABORED. NO S/S OF DISTRESS. NO C/O PAIN. NEEDS MET. CALL LIGHT WITHIN REACH. WILL CPOC.
[2019-08-06] VITALS (7 sets, daily range): BP systolic 169–225; BP diastolic 74–95
--- NOTE | 2019-08-06 01:28 | NUR ---
PATIENT RESTING COMFORTABLY IN BED. PATIENT REQUESTING THAT HER NITRO BID IS REMOVED. PATIENT STATES THAT ITS MAKING HER HEADACHE WORSE. NITRO BID REMOVED.
--- NOTE | 2019-08-06 04:13 | NUR ---
PATIENT RESTING COMFORTABLY IN BED. RESPIRATIONS ARE EVEN AND UNLABORED. NO S/S OF DISTRESS. NO C/OPAIN. CALL LIGHT WITHIN REACH. WILL CPOC.
[2019-08-06 06:13] LABS: BASOPHILS 0.4 % (0-2); EOSINOPHILS 2.6 % (0-7); HEMATOCRIT 32.3 % (36.0-48.0); HEMOGLOBIN 10.6 g/dL (12-16); IMMATURE GRANULOCYTES 0.5 % (0-5); LYMPHOCYTES 22.4 % (15-50); MCH 26.9 pg (26.0-34.0); MCHC 32.8 g/dL (31.0-37.0); MEAN PLATELET VOLUME 9.7 fL (7.4-10.4); MONOCYTES 6.7 % (2-11); NEUTROPHILS 67.4 % (40-80); PLATELET COUNT 274 10x3/uL (130-400); RBC 3.94 10x6/uL (4.00-5.40); RDW 14.5 % (11.5-14.5)
[2019-08-06 06:38] LABS: ANION GAP 15.2 mmol/L (8-16); CALCIUM 8.5 mg/dL (8.5-10.1); CARBON DIOXIDE 22.2 mmol/L (21.0-32.0); CREATININE - SERUM 1.7 mg/dL (0.6-1.3); POTASSIUM - SERUM 4.4 mmol/L (3.5-5.1)
--- NOTE | 2019-08-06 08:16 | NUR ---
AM MEDS GIVEN AT THIS TIME. ALSO GAVE 4MG OF ZOFRAN FOR NAUSEA. PT DENIES ANY OTHER NEEDS AT THIS TIME. WILL RECHECK BP IN 1HR TO SEE IF ITS GOING DOWN. CALL LIHGT IN REACH, NAD NOTED,W ILL CONTINUE TO MONITOR.
--- NOTE | 2019-08-06 10:17 | NUR ---
PT RESTING COMFORTABLY IN BED, BP NOW 169/86 WITH RATE OF 77. PT DENIES ANY NEEDS AT THIS TIME. CALL LIGHT IN REACH, NAD NOTED,W ILL CONTINUE TO MONITOR.
--- NOTE | 2019-08-06 15:21 | MORECARE ---
CASE MANAGEMENT DISCHARGE SUMMARY PATIENT: REESE MARINA UNIT: [id number] ADM DATE: 07/31/19 AGE: 59 : 58 SEX: F ROOM/BED: D.0234 AUTHOR: YUNIOR,DOC PHYSICIAN: REFERRING PHYSICIAN: KENZIE CRUZ MD DATE OF SERVICE: 08/06/19 Discharge Plan Patient Name: REESE MARINA Facility: [facility]:[place] : 1960 Planned Disposition: Home Anticipated Discharge Date: Discharge Date: Expected LOS: Initial Reviewer: [id number] Initial Review Date: 08/06/2019 Generated: 08/06/19 4:20 pm Comments DCP- Discharge Planning Updated by [email or web address]: Gerardo Harris on 08/06/19 2:[address] Patient Name: REESE MARINA Admission Status: ER Accout number: [id number] Admission Date: 07-31-2019 : 1960 Admission Diagnosis: Attending: KENZIE CRUZ Current LOS: 6 Anticipated DC Date: Planned Disposition: Home Primary Insurance: [facility] MEDICARE SOLUTIONS Discharge Planning Comments: CM MET WITH PT IN ROOM TO DISCUSS DISCHARGE PLANNING AND NEEDS. PT REPORTS LIVING AT HOME INDEPENDENTLY WITH ADULT DAUGHTER. PT HAS NO MEDICAL EQUIPMENT AND NO OUTSIDE SERVICES ASSISTING IN THE HOME. CM DISCUSSED AVAILABILITY OF HOME HEALTH, REHAB SERVICES AND MEDICAL EQUIPMENT. PT DENIES DISCHARGE NEEDS, REPORTS HER SON WILL PICK HER UP FOR DISCHARGE HOME. PT PLANS TO DISCHARGE HOME WITH FAMILY, PT HAS NO ANTICIPATED NEEDS AT THIS TIME. FAMILY TO TRANSPORT HOME AT DISCHARGE. CM TO FOLLOW AND ASSIST NEEDED. Metals Analyst: Gerardo Harris DCPIA - Discharge Planning Initial Assessment Updated by [id number]: Gerardo Harris on 08/06/19 3:14 pm * Is the patient Alert and Oriented? Yes * How many steps to enter\exit or inside your home? * PCP DR. DELACRUZ * Pharmacy [facility] * Preadmission Environment Home with Family * ADLs Independent * Equipment None * Other Equipment NO MEDICAL EQUIPMENT PROVIDER PREFERENCE * List name and contact numbers for known caregivers / representatives who currently or will assist patient after discharge: KESHIA LUGO DTR, * Verbal permission to speak to the caregivers and representatives has been obtained from the patient. N/A * Community resources currently utilized None * Please name any agencies selected above. NONE * Additional services required to return to the preadmission environment? No * Can the patient safely return to the preadmission environment? Yes * Has this patient been hospitalized within the prior 30 days at any hospital? No Patient Name: REESE MARINA Page [phone] at 1521 All edits/amendments must be made on the electronic document DICTATION DATE: 08/06/19 152 GEM EXPERT: JASON 08/06/19 1520 RPT#: [id number] DC DATE: STATUS: ADM IN [facility] [address] [place] [address] END OF REPORT
--- NOTE | 2019-08-06 15:36 | NUR ---
RT HAND IV LEAKING. D/C IV WITH CATHETER TIP INTACT. VASCULAR NURSE CALLED TO START NEW IV DUE TO PT BEING A DIFFICULT STICK.
--- NOTE | 2019-08-06 17:00 | NUR ---
BLOOD SUGAR OF 203, 8 UNITS OF INSULIN GIVEN PER S/S. PT REFUSED TO TAKE 5UNITS OF INSULIN SHEDULED WITH MEALS. PT ALSO C/O NAUSEA AND PAIN. GAVE 4MG OF ZOFRAN AND 4MG OF MORPHINE FOR PAIN LEVEL OF 6/10. IV FLUIDS HOOKED BACK UP TO INFUSE TO RT AC IV. PT DENIES ANY NEEDS AT THIS TIME. CALL LIGHT IN REACH, NAD NOTED,W ILL CONTINUE TO MONITOR.
[2019-08-07] VITALS: BP 182/85
[2019-08-07 04:00] VITALS: BP 179/83
--- NOTE | 2019-08-07 04:00 | NUR ---
IV INFILTRATED TO THE RIGHT AC.
[2019-08-07 08:48] VITALS: BP 171/75
[2019-08-07 11:33] LABS: BASOPHILS 0.3 % (0-2); EOSINOPHILS 2.1 % (0-7); HEMATOCRIT 29.1 % (36.0-48.0); HEMOGLOBIN 9.6 g/dL (12-16); IMMATURE GRANULOCYTES 0.5 % (0-5); LYMPHOCYTES 21.8 % (15-50); MCH 26.8 pg (26.0-34.0); MCV 81.3 fL (80.0-100.0); MEAN PLATELET VOLUME 9.6 fL (7.4-10.4); MONOCYTES 8.5 % (2-11); NEUTROPHILS 66.8 % (40-80); PLATELET COUNT 225 10x3/uL (130-400); RBC 3.58 10x6/uL (4.00-5.40); RDW 14.3 % (11.5-14.5); WBC 6.6 10x3/uL (4.8-10.8)
[2019-08-07 11:36] LABS: CALCIUM 8.2 mg/dL (8.5-10.1); CARBON DIOXIDE 23.5 mmol/L (21.0-32.0); CREATININE - SERUM 1.8 mg/dL (0.6-1.3); POTASSIUM - SERUM 4.5 mmol/L (3.5-5.1)
[2019-08-07 13:45] VITALS: BP 120/68
--- NOTE | 2019-08-07 13:57 | NUR ---
Nutrition Follow-up: Still not eating well and continues with nausea. Reports eating <50% of breakfast this AM. Will drink Glucerna. Diet: ADA Low Sodium Wt: 233# (08/06); 224.8# (07/31) Last BM: 08/04 per chart Labs noted: Glu 178, Ca 8.2 Meds noted: Humalog, Lantus, Zofran -+Glucerna with meals. -Monitor wt; noted daily wts ordered. -RD following.
[2019-08-07 18:27] VITALS: BP 172/77
--- NOTE | 2019-08-07 19:30 | NUR ---
PATIENT IS ALERT AND ORIENTED, RESTING IN BED. RESPIRATIONS ARE EVEN AND UNLABORED. NO S/S OF DISTRESS. NO C/O PAIN. CALL LIGHT WITHIN REACH. WILL CPOC.
[2019-08-07 20:00] VITALS: BP 166/73
--- NOTE | 2019-08-07 22:36 | NUR ---
PATIENT REQUESTING MORPHINE FOR PAIN. MORPHINE WAS D/Cd BY PHARMACY. NOTIFIED OUSMANE HO ORDERS GIVEN FOR NORCO 10/325 MG q 6HRP.
[2019-08-08 00:30] VITALS: BP 155/70
--- NOTE | 2019-08-08 02:11 | NUR ---
PATIENT RESTING COMFORTABLY IN BED. RESPIRATIONS ARE EVEN AND UNLABORED. NO S/S OF DISTRESS. CALL LIGHT WITHIN REACH. WILL CPOC.
[2019-08-08 04:30] VITALS: BP 172/79
[2019-08-08 05:12] LABS: BASOPHILS 0.3 % (0-2); EOSINOPHILS 4.7 % (0-7); HEMATOCRIT 30.3 % (36.0-48.0); IMMATURE GRANULOCYTES 0.6 % (0-5); LYMPHOCYTES 22.8 % (15-50); MCH 26.8 pg (26.0-34.0); MCV 81.2 fL (80.0-100.0); MEAN PLATELET VOLUME 9.6 fL (7.4-10.4); MONOCYTES 8.8 % (2-11); NEUTROPHILS 62.8 % (40-80); PLATELET COUNT 248 10x3/uL (130-400); RBC 3.73 10x6/uL (4.00-5.40); RDW 14.4 % (11.5-14.5); WBC 6.7 10x3/uL (4.8-10.8)
[2019-08-08 05:24] LABS: ANION GAP 12.8 mmol/L (8-16); CALCIUM 8.4 mg/dL (8.5-10.1); CARBON DIOXIDE 22.5 mmol/L (21.0-32.0); CREATININE - SERUM 1.8 mg/dL (0.6-1.3); MAGNESIUM - SERUM 2.5 mg/dL (1.8-2.4); POTASSIUM - SERUM 4.3 mmol/L (3.5-5.1)
[2019-08-08 10:25] LABS: APPEARANCE CLEAR (CLEAR); COLOR YELLOW (YELLOW); GLUCOSE 50 mg/dL (NEGATIVE); KETONE SMALL mg/dL (NEGATIVE); NITRITE NEGATIVE (NEGATIVE); PROTEIN 3+ mg/dL (NEGATIVE); SPECIFIC GRAVITY 1.015 (1.005-1.020)
[2019-08-08 10:26] LABS: BILIRUBIN NEGATIVE (NEGATIVE); EPITHELIAL CELLS 0-5 /hpf (0-5); RED CELLS - URINE 0-5 /hpf (0-5); UROBILINOGEN NORMAL (NORMAL); WHITE CELLS - URINE 0-5 /hpf (NEGATIVE)
[2019-08-08 12:01] VITALS: BP 193/81
[2019-08-08 14:18] VITALS: BP 181/77
--- NOTE | 2019-08-08 19:30 | NUR ---
REPORT AND INITIAL ROUNDS COMPLETED. PT RESTING IN BED. NO DISTRESS. CPOC.
[2019-08-08 20:00] VITALS: BP 146/92
--- NOTE | 2019-08-08 20:33 | NUR ---
RT INITIATED METANEB TREATMENTS AND PT IS TRYING TO OBTAIN A SPUTUM SPECIMEN. AT THIS TIME, UNABLE TO COUGH UP ANYTHING.
--- NOTE | 2019-08-08 21:40 | NUR ---
REPORT RECIEVED FROM CAROL IN ER. NOTIFIED AT THIS TIME THAT PT'S ROOM IS NOW CLEAN AND READY.
--- NOTE | 2019-08-08 22:15 | NUR ---
BEDTIME MEDS GIVEN. ZOFRAN ORAL FOR NAUSEA. NORCO FOR PAIN/DISCOMFORT GENERALIZED.
[2019-08-09] VITALS: BP 180/80
--- NOTE | 2019-08-09 02:34 | NUR ---
RESTING WITH EYES CLOSED. RESPS EVEN/NONLABORED. SR/60'S PER TELEMETRY. CPOC.
[2019-08-09 04:00] VITALS: BP 150/73
[2019-08-09 04:56] LABS: BASOPHILS 0.3 % (0-2); EOSINOPHILS 3.8 % (0-7); HEMATOCRIT 29.3 % (36.0-48.0); HEMOGLOBIN 9.6 g/dL (12-16); IMMATURE GRANULOCYTES 0.5 % (0-5); LYMPHOCYTES 24.5 % (15-50); MCH 26.4 pg (26.0-34.0); MCHC 32.8 g/dL (31.0-37.0); MCV 80.7 fL (80.0-100.0); MEAN PLATELET VOLUME 9.5 fL (7.4-10.4); MONOCYTES 13.7 % (2-11); NEUTROPHILS 57.2 % (40-80); PLATELET COUNT 239 10x3/uL (130-400); RBC 3.63 10x6/uL (4.00-5.40); RDW 14.3 % (11.5-14.5)
[2019-08-09 05:08] LABS: ANION GAP 10.7 mmol/L (8-16); CALCIUM 8.3 mg/dL (8.5-10.1); CARBON DIOXIDE 24.9 mmol/L (21.0-32.0); MAGNESIUM - SERUM 2.5 mg/dL (1.8-2.4); POTASSIUM - SERUM 4.6 mmol/L (3.5-5.1)
[2019-08-09 10:40] VITALS: BP 150/78
[2019-08-09 14:57] VITALS: BP 162/70
--- NOTE | 2019-08-09 20:00 | NUR ---
REPORT RECIEVED AND INITIAL ROUNDS COMPLETED. PT ALERT/ORIENTED. SR/69 PER TELEMETRY. NONLABORED RESPIRATIONS ON ROOM AIR. CPOC. CALL LIGHT IN REACH.
[2019-08-09 20:29] VITALS: BP 170/76
--- NOTE | 2019-08-09 22:14 | NUR ---
BEDTIME MEDS GIVEN. FSBS 143. NORCO GIVEN FOR HEADACHE. ZANAFLEX GIVEN FOR GENERALIZED MUSCLE DISCOMFORT.
[2019-08-09 23:55] VITALS: BP 160/62
--- NOTE | 2019-08-10 03:50 | NUR ---
RESTING IN BED WITH NO DISTRESS. SR PER TELEMETRY. CPOC.
[2019-08-10 04:59] VITALS: BP 144/70
[2019-08-10 05:02] LABS: BASOPHILS 0.3 % (0-2); EOSINOPHILS 7.8 % (0-7); HEMOGLOBIN 9.2 g/dL (12-16); IMMATURE GRANULOCYTES 0.3 % (0-5); LYMPHOCYTES 27.8 % (15-50); MCH 26.5 pg (26.0-34.0); MCHC 32.9 g/dL (31.0-37.0); MCV 80.7 fL (80.0-100.0); MEAN PLATELET VOLUME 9.3 fL (7.4-10.4); MONOCYTES 12.2 % (2-11); NEUTROPHILS 51.6 % (40-80); PLATELET COUNT 234 10x3/uL (130-400); RBC 3.47 10x6/uL (4.00-5.40); RDW 14.2 % (11.5-14.5); WBC 5.8 10x3/uL (4.8-10.8)
[2019-08-10 05:24] LABS: ANION GAP 9.9 mmol/L (8-16); CALCIUM 8.6 mg/dL (8.5-10.1); CARBON DIOXIDE 26.6 mmol/L (21.0-32.0); MAGNESIUM - SERUM 2.5 mg/dL (1.8-2.4); POTASSIUM - SERUM 4.5 mmol/L (3.5-5.1)
--- NOTE | 2019-08-10 07:15 | NUR ---
RECEIVED PT IN BED EYES CLOSED RESP UNLABORED SKIN W/D COLOR WNL NAD NOTED
[2019-08-10 09:50] VITALS: BP 168/71
--- NOTE | 2019-08-10 11:39 | MORECARE ---
CASE MANAGEMENT DISCHARGE SUMMARY PATIENT: REESE MARINA UNIT: [id number] ADM DATE: 07/31/19 AGE: 59 : 58 SEX: F ROOM/BED: D.5834 AUTHOR: YUNIOR,DOC PHYSICIAN: REFERRING PHYSICIAN: KENZIE CRUZ MD DATE OF SERVICE: 08/10/19 Discharge Plan Patient Name: REESE MARINA Facility: [facility]:[place] : 1960 Planned Disposition: Home Anticipated Discharge Date: Discharge Date: Expected LOS: Initial Reviewer: [email or web address] Initial Review Date: 08/06/2019 Generated: 08/10/19 12:39 pm Comments DCP- Discharge Planning Updated by [id number]: Sheila Kelly on 08/10/19 10:[address] CM MET WITH THE PATIENT AT THE BEDSIDE. SHE STATES SHE KNOWS SHE WILL LIKELY BE DISCHARGED TODAY. SHE IS IN AGREEMENT WITH THE PLAN. SHE DENIES ANY NEEDS AT DISCHARGE. DISCHARGE IMM EXPLAINED AND SERVED . SIGNED ORIGINALS TO THE PATIENT AND THE HARD COVER CHART. DCP- Discharge Planning Updated by [id number]: Gerardo Harris on 08/06/19 2:[address] Patient Name: REESE MARINA Admission Status: ER Accout number: [id number] Admission Date: 07-31-2019 : 1960 Admission Diagnosis: Attending: KENZIE CRUZ Current LOS: 6 Anticipated DC Date: Planned Disposition: Home Primary Insurance: [facility] MEDICARE SOLUTIONS Discharge Planning Comments: CM MET WITH PT IN ROOM TO DISCUSS DISCHARGE PLANNING AND NEEDS. PT REPORTS LIVING AT HOME INDEPENDENTLY WITH ADULT DAUGHTER. PT HAS NO MEDICAL EQUIPMENT AND NO OUTSIDE SERVICES ASSISTING IN THE HOME. CM DISCUSSED AVAILABILITY OF HOME HEALTH, REHAB SERVICES AND MEDICAL EQUIPMENT. PT DENIES DISCHARGE NEEDS, REPORTS HER SON WILL PICK HER UP FOR DISCHARGE HOME. PT PLANS TO DISCHARGE HOME WITH FAMILY, PT HAS NO ANTICIPATED NEEDS AT THIS TIME. FAMILY TO TRANSPORT HOME AT DISCHARGE. CM TO FOLLOW AND ASSIST NEEDED. Clinical Radiologist: Gerardo Harris DCPIA - Discharge Planning Initial Assessment Updated by [id number]: Gerardo Harris on 08/06/19 3:14 pm * Is the patient Alert and Oriented? Yes * How many steps to enter\exit or inside your home? * PCP DR. DELACRUZ * Pharmacy [facility] * Preadmission Environment Home with Family * ADLs Independent * Equipment None * Other Equipment NO MEDICAL EQUIPMENT PROVIDER PREFERENCE * List name and contact numbers for known caregivers / representatives who currently or will assist patient after discharge: KESHIA ZAHIDA LUGO, * Verbal permission to speak to the caregivers and representatives has been obtained from the patient. N/A * Community resources currently utilized None * Please name any agencies selected above. NONE * Additional services required to return to the preadmission environment? No * Can the patient safely return to the preadmission environment? Yes * Has this patient been hospitalized within the prior 30 days at any hospital? No Coverage Notice Reviewer: [id number] Danyell Kelly Notice Issued Date-Time: 08/10/2019 11:27 Notice Type: IM Discharge Notice Notice Delivered To: Patient Relationship to Patient: Self Pile Fabric Knitter Name: Delivery Method: HAND - Hand Delivered Jenna Days: Prior Verbal Notification: Recipient Understood Notice: Yes Recipient Signature: Yes Med Rec Note Co-signed by Attending: Coverage Notice Comment: SERVED DISCHARGE IMM. PATIENT STATES SHE UNDERSTANDS . HAD NO QUESTIONS OR CONCERNS. ORIGINAL SIGNED COPY TO THE PATIENT. ORIGINAL SIGNED COPY TO THE CHART. Last DP export: 08/06/19 2:21 p Patient Name: REESE MARINA Page [phone] at 1139 All edits/amendments must be made on the electronic document DICTATION DATE: 08/10/19 1139 MAGISTERIAL DISTRICT JUDGE: JASON 08/10/19 1139 RPT#: [id number] DC DATE: STATUS: ADM IN [facility] [address] [place] [address] END OF REPORT
[2019-08-10] MEDS ORDERED: NORVASC10 MG PO (13:10)
[2019-08-10] MEDS ORDERED: ALDACTONE100 MG PO (13:10)
[2019-08-10] MEDS ORDERED: HYDRALAZINE HCL50 MG PO (13:10)
[2019-08-10] MEDS ORDERED: MINIPRESS 5 MG C5 MG PO (13:10)
[2019-08-10] MEDS ORDERED: LISINOPRIL10 MG PO (13:10)
[2019-08-10] MEDS ORDERED: METOLAZONE5 MG PO (13:12)
[2019-08-10] MEDS ORDERED: CATAPRES TTS-3 TRANSDERM (13:12)
[2019-08-10 13:57] LABS: PROTEIN - URINE 168.5 mg/dL (0.0-11.9)
[2019-08-10 14:15] VITALS: BP 151/72
--- NOTE | 2019-08-10 15:00 | NUR ---
REVIEWED DISCHARGE INSTRUCTIONS WITH PT STATES UNDERSTANDING COPY GIVEN PT DISCHARGED HOME IN STABLE CONDITION WITH ALL PERSONAL BELONGINGS LEFT UNIT VIA W/C
--- NOTE | 2019-08-11 09:05 | MORECARE ---
CASE MANAGEMENT DISCHARGE SUMMARY PATIENT: REESE MARINA UNIT: [id number] ADM DATE: 07/31/19 AGE: 59 : 58 SEX: F ROOM/BED: D.6994 AUTHOR: YUNIOR,DOC PHYSICIAN: REFERRING PHYSICIAN: KENZIE CRUZ MD DATE OF SERVICE: 08/11/19 Discharge Plan Patient Name: REESE MARINA Facility: [facility]:[place] : 1960 Planned Disposition: Home Anticipated Discharge Date: Discharge Date: 08/10/2019 Expected LOS: Initial Reviewer: [id number] Initial Review Date: 08/06/2019 Generated: 08/11/19 10:04 am Comments DCP- Discharge Planning Updated by [id number]: Sheila Kelly on 08/10/19 10:[address] CM MET WITH THE PATIENT AT THE BEDSIDE. SHE STATES SHE KNOWS SHE WILL LIKELY BE DISCHARGED TODAY. SHE IS IN AGREEMENT WITH THE PLAN. SHE DENIES ANY NEEDS AT DISCHARGE. DISCHARGE IMM EXPLAINED AND SERVED . SIGNED ORIGINALS TO THE PATIENT AND THE HARD COVER CHART. DCP- Discharge Planning Updated by [id number]: Gerardo Harris on 08/06/19 2:[address] Patient Name: REESE MARINA Admission Status: ER Accout number: [id number] Admission Date: 07-31-2019 : 1960 Admission Diagnosis: Attending: KENZIE CRUZ Current LOS: 6 Anticipated DC Date: Planned Disposition: Home Primary Insurance: [facility] MEDICARE SOLUTIONS Discharge Planning Comments: CM MET WITH PT IN ROOM TO DISCUSS DISCHARGE PLANNING AND NEEDS. PT REPORTS LIVING AT HOME INDEPENDENTLY WITH ADULT DAUGHTER. PT HAS NO MEDICAL EQUIPMENT AND NO OUTSIDE SERVICES ASSISTING IN THE HOME. CM DISCUSSED AVAILABILITY OF HOME HEALTH, REHAB SERVICES AND MEDICAL EQUIPMENT. PT DENIES DISCHARGE NEEDS, REPORTS HER SON WILL PICK HER UP FOR DISCHARGE HOME. PT PLANS TO DISCHARGE HOME WITH FAMILY, PT HAS NO ANTICIPATED NEEDS AT THIS TIME. FAMILY TO TRANSPORT HOME AT DISCHARGE. CM TO FOLLOW AND ASSIST NEEDED. Client Coordinator: Gerardo Harris DCPIA - Discharge Planning Initial Assessment Updated by [id number]: Gerardo Harris on 08/06/19 3:14 pm * Is the patient Alert and Oriented? Yes * How many steps to enter\exit or inside your home? * PCP DR. DELACRUZ * Pharmacy [facility] * Preadmission Environment Home with Family * ADLs Independent * Equipment None * Other Equipment NO MEDICAL EQUIPMENT PROVIDER PREFERENCE * List name and contact numbers for known caregivers / representatives who currently or will assist patient after discharge: PRISCA CARLINR, * Verbal permission to speak to the caregivers and representatives has been obtained from the patient. N/A * Community resources currently utilized None * Please name any agencies selected above. NONE * Additional services required to return to the preadmission environment? No * Can the patient safely return to the preadmission environment? Yes * Has this patient been hospitalized within the prior 30 days at any hospital? No Coverage Notice Reviewer: [id number] Danyell Kelly Notice Issued Date-Time: 08/10/2019 11:27 Notice Type: IM Discharge Notice Notice Delivered To: Patient Relationship to Patient: Self Hand Fabric Cutter Name: Delivery Method: HAND - Hand Delivered Jenna Days: Prior Verbal Notification: Recipient Understood Notice: Yes Recipient Signature: Yes Med Rec Note Co-signed by Attending: Coverage Notice Comment: SERVED DISCHARGE IMM. PATIENT STATES SHE UNDERSTANDS . HAD NO QUESTIONS OR CONCERNS. ORIGINAL SIGNED COPY TO THE PATIENT. ORIGINAL SIGNED COPY TO THE CHART. Last DP export: 08/10/19 10:39 a Patient Name: REESE MARINA Page 48899 at 0905 All edits/amendments must be made on the electronic document DICTATION DATE: 08/11/19903 BIKE TECHNICIAN: JASON 08/11/19903 RPT#: [id number] DC DATE:08/10/19 STATUS: DIS IN [facility] [address] [place] [address] END OF REPORT
== END 2019-08-10 15:28 | disposition home or self-care (01) | DRG 304 ==
LOC: D.ER 19:55 → D.M2 22:27 → D.ICU 22:27 → D.M2 22:27
PROVIDERS: Emergency Medicine; Family Medicine; Internal Medicine Nephrology; ADMIT Internal Medicine Nephrology; ATTEND Internal Medicine Nephrology
DX: I16.1 Hypertensive emergency (principal); I63.9 Cerebral infarction, unspecified; N39.0 Urinary tract infection, site not specified; N17.9 Acute kidney failure, unspecified; I12.9 Hypertensive chronic kidney disease with stage 1 through stage 4 chronic kidney disease, or unspecified chronic kidney disease; N18.3 Chronic kidney disease, stage 3 (moderate); E11.22 Type 2 diabetes mellitus with diabetic chronic kidney disease; I25.10 Atherosclerotic heart disease of native coronary artery without angina pectoris; E78.5 Hyperlipidemia, unspecified; D63.1 Anemia in chronic kidney disease; B96.20 Unspecified Escherichia coli [E. coli] as the cause of diseases classified elsewhere

== ENCOUNTER 2020-01-21 23:35 | Inpatient (IN) | payer MEDICARE, MEDICAID ==
[~2020-01-21] VITALS: Ht 152.4 cm; Wt 101.0 kg
[~2020-01-21 23:35] MED LIST changes: +ALDACTONE100 MG PO; +BAYER CHEWABLE81 MG PO; +CATAPRES TTS-3 TRANSDERM; +HYDRALAZINE HCL50 MG PO; +LISINOPRIL10 MG PO; +METOLAZONE5 MG PO; +MINIPRESS 5 MG C5 MG PO; +NORVASC10 MG PO; +PROZAC20 MG PO; +TOPROL XL50 MG PO; +VICTOZA0.6 MG/0.1 SQ
[2020-01-21 23:45] LABS: HEMATOCRIT 27.3 % (36.0-48.0); HEMOGLOBIN 8.9 g/dL (12-16); LYMPHOCYTES 25.2 % (15-50); MCH 27.5 pg (26.0-34.0); MCHC 32.6 g/dL (31.0-37.0); MCV 84.3 fL (80.0-100.0); MEAN PLATELET VOLUME 9.5 fL (7.4-10.4); NEUTROPHILS 67.2 % (40-80); PLATELET COUNT 263 10x3/uL (130-400); RBC 3.24 10x6/uL (4.00-5.40); RDW 14.9 % (11.5-14.5); WBC 6.3 10x3/uL (4.8-10.8)
[2020-01-21 23:54] LABS: CALC OSMOLALITY 286 mosm/kg (275-300); CALCIUM 8.4 mg/dL (8.5-10.1); CARBON DIOXIDE 20.4 mmol/L (21.0-32.0); CHLORIDE - SERUM 104 mmol/L (98-107); CREATININE - SERUM 1.9 mg/dL (0.6-1.3); GLUCOSE 290 mg/dL (74-106); POTASSIUM - SERUM 4.2 mmol/L (3.5-5.1); SODIUM 135 mmol/L (136-145); UREA NITROGEN 30 mg/dL (7-18); eGFR NON AFRICAN AMERICAN 28 mL/min (90-120)
[2020-01-22 00:10] LABS: ALBUMIN 3.4 g/dL (3.4-5.0); ALKALINE PHOSPHATASE 82 U/L (30-120); ALT (SGPT) 32 U/L (10-68); BILIRUBIN - TOTAL 0.31 mg/dL (0.2-1.3); C-REACTIVE PROTEIN 0.9 mg/dL (0.0-0.9); CKMB 0.9 U/L (0.0-3.6); CREATINE KINASE 135 UL (21-215); PRO BNP 1281 pg/mL (0-125); PROTEIN - SERUM 7.1 g/dL (6.4-8.2); TROPONIN-I < 0.017 ng/mL (0.000-0.060)
[2020-01-22 00:18] LABS: APTT 28.4 SECONDS (22.8-39.4); D-DIMER-QUANTITATIVE 0.45 ug/mLFEU (0.20-0.54); INR 0.89 (0.85-1.17)
--- NOTE | 2020-01-22 03:26 | NUR ---
RECEVIED PT FROM ER. VIA STRETCHER ACCOMPLINED BY HOSPITAL STAFF AND FAMILY MEMBER. ASSIST PT TO RESTROOM. PT AWAKE ALERT AND ORIENTED x4. PT COMPLIANS OF SHORTNESS OF BREATH NASAL CANULA 3L. 97% AIR TURNED ON AND FAN PROVIDED PT COMPLAIN OF SWEATS. BLOOD SUGAR TAKEN 51. TURKEY SANDWHICH PROVIDED. PT BLOOD SUGAR IS NOW 264. PT HAS INSULIN PUMP ATTACHED TO HER. PT ADMINISTERED INSULIN TO SELF. PT EDUCATED ON SIGNS AND SYMPTOMS TO REPORT. DAUGHTER IS AT BEDSIDE. PT ENCOURAGED TO CALL FOR HELP IF SHE EXPERIENCES ANY CHANGES. BED IS IN ITS LOWEST POSTION. SIDERAILS x2. CALL LIGHT AND OTHER PERSONAL ITEMS WITH IN REACH. WILL CONTINUE TO MONITOR
[2020-01-22 03:30] VITALS: Ht 152.4 cm; Wt 101.0 kg
[2020-01-22 04:00] VITALS: BP 179/70
--- NOTE | 2020-01-22 07:24 | NUR ---
PT SITTING UP IN BED. SOB ON 3L NC. STATES SHE HAD JUST GOT UP TO THE BATHROOM. PTs DAUGHTER AT BEDSIDE. CALL LIGHT WTIHIN REACH. DENIES NEEDS OR PAIN AT THIS TIME. BED IN LOWEST POSITION. WILL CONTINUE TO MONITOR.
[2020-01-22 08:22] LABS: BASOPHILS 0.2 % (0-2); EOSINOPHILS 1.1 % (0-7); HEMATOCRIT 24.9 % (36.0-48.0); HEMOGLOBIN 8.1 g/dL (12-16); IMMATURE GRANULOCYTES 0.6 % (0-5); LYMPHOCYTES 12.7 % (15-50); MCH 27.2 pg (26.0-34.0); MCHC 32.5 g/dL (31.0-37.0); MCV 83.6 fL (80.0-100.0); MEAN PLATELET VOLUME 9.6 fL (7.4-10.4); MONOCYTES 7.8 % (2-11); NEUTROPHILS 77.6 % (40-80); PLATELET COUNT 256 10x3/uL (130-400); RBC 2.98 10x6/uL (4.00-5.40); RDW 14.6 % (11.5-14.5)
[2020-01-22 08:24] LABS: WBC 8.3 10x3/uL (4.8-10.8)
[2020-01-22 09:00] VITALS: BP 169/73
[2020-01-22 09:48] LABS: ANION GAP 14.5 mmol/L (8-16); CALCIUM 8.6 mg/dL (8.5-10.1); CARBON DIOXIDE 20.9 mmol/L (21.0-32.0); CREATININE - SERUM 1.7 mg/dL (0.6-1.3); POTASSIUM - SERUM 4.4 mmol/L (3.5-5.1)
[2020-01-22 11:00] VITALS: BP 170/73
--- NOTE | 2020-01-22 12:01 | NUR ---
Aware patient is in the hospital and will follow patient. Will continue outpatient cardiac rehab once patient is release to begin again.
--- NOTE | 2020-01-22 14:36 | NUR ---
I CALLED AND TALKED TO SALTY IN ADMIN FOR CLARIFICATION OF VISITORS FOR THIS PATIENT. SON IS HERE AND WORKS M-F, SISTER IS SELF EMPLOYED, AND OTHER SISTER IS IN [place]. SOMEONE STAYS WITH PATIENT AT ALL TIME. SALTY SAID THAT THEY CAN SWITCH OUT BUT NO MORE THAN ONE IN ROOM AT A TIME. THIS IS RELAYED TO THE SON (FLORI) WHO STATES HE UNDERSTANDS THIS AND WILL PASS INFORMATION TO HIS SISTERS.
[2020-01-22 14:42] LABS: BILIRUBIN NEGATIVE (NEGATIVE); GLUCOSE NEGATIVE (NEGATIVE); KETONE NEGATIVE (NEGATIVE); NITRITE NEGATIVE (NEGATIVE); UROBILINOGEN NORMAL (NORMAL)
[2020-01-22 14:46] LABS: RED CELLS - URINE NONE SEEN /hpf (0-5)
[2020-01-22 14:47] LABS: BACTERIA MODERATE /hpf (NEGATIVE); EPITHELIAL CELLS 0-5 /hpf (0-5)
[2020-01-22 17:43] LABS: UDS - AMPHET NEGATIVE QUAL (NEGATIVE); UDS - BARB NEGATIVE QUAL (NEGATIVE); UDS - BENZO NEGATIVE QUAL (NEGATIVE); UDS - COCAINE NEGATIVE QUAL (NEGATIVE); UDS - OPIATE NEGATIVE QUAL (NEGATIVE); UDS - PCP NEGATIVE QUAL (NEGATIVE); UDS - THC NEGATIVE QUAL (NEGATIVE)
--- NOTE | 2020-01-22 17:49 | NUR ---
I have reviewed this patient and I concur with the Shift Assessment completed by the Licensed Practical Nurse today this shift.
--- NOTE | 2020-01-22 18:33 | NUR ---
BLOOD INFUSING TO LEFT FOREARM @ 125 MLS/HR. PT TOLERATING WELL. VSS AND DOCUMENTED IN CHART. DENIES NEEDS AND STATES HEADACHE FEELS BETTER. WILL CONTINUE TO MONITOR.
[2020-01-22 21:11] VITALS: BP 174/77
[2020-01-23 00:32] VITALS: BP 138/71
--- NOTE | 2020-01-23 01:56 | NUR ---
2ND UNIT OF BLOOD HAS FINISHED INFUSING. VSS. PT DENIES PAIN OR NEEDS. HER DAUGHTER IS RESTING AT THE PTS BEDSIDE. BED IS LOW AND CALL LIGHT WITHIN REACH.
[2020-01-23 04:51] VITALS: BP 170/77
[2020-01-23 05:09] LABS: BASOPHILS 0.5 % (0-2); EOSINOPHILS 5.1 % (0-7); HEMATOCRIT 29.3 % (36.0-48.0); HEMOGLOBIN 9.6 g/dL (12-16); IMMATURE GRANULOCYTES 0.2 % (0-5); LYMPHOCYTES 19.8 % (15-50); MCH 27.7 pg (26.0-34.0); MCHC 32.8 g/dL (31.0-37.0); MCV 84.4 fL (80.0-100.0); MEAN PLATELET VOLUME 10.3 fL (7.4-10.4); MONOCYTES 10.2 % (2-11); NEUTROPHILS 64.2 % (40-80); PLATELET COUNT 230 10x3/uL (130-400); RBC 3.47 10x6/uL (4.00-5.40); RDW 14.7 % (11.5-14.5); WBC 6.5 10x3/uL (4.8-10.8)
[2020-01-23 05:10] LABS: ALKALINE PHOSPHATASE 70 U/L (30-120); ALT (SGPT) 24 U/L (10-68); BILIRUBIN - TOTAL 0.37 mg/dL (0.2-1.3); CALC OSMOLALITY 289 mosm/kg (275-300); CALCIUM 8.6 mg/dL (8.5-10.1); CHLORIDE - SERUM 106 mmol/L (98-107); CREATININE - SERUM 2.1 mg/dL (0.6-1.3); MAGNESIUM - SERUM 2.1 mg/dL (1.8-2.4); POTASSIUM - SERUM 4.6 mmol/L (3.5-5.1); PROTEIN - SERUM 6.5 g/dL (6.4-8.2); SODIUM 137 mmol/L (136-145); TROPONIN-I < 0.017 ng/mL (0.000-0.060); UREA NITROGEN 33 mg/dL (7-18); eGFR NON AFRICAN AMERICAN 25 mL/min (90-120)
[2020-01-23 05:12] LABS: GLUCOSE 261 mg/dL (74-106)
[2020-01-23 09:00] VITALS: BP 170/75
--- NOTE | 2020-01-23 10:34 | NUR ---
PT TAKES SHE WAS TAKEN OFF LISINOPRIL AND ALDACTONE BEFROE ADMISSION. DC'D OFF MED REC. ASKED PT'S DAUGHTER AT BEDSIDE TO GET A LIST OF PT'S HOME MEDICATIONS SO WE CAN CORRECT PT'S MED REC. SHE STATED SHE WILL.
[2020-01-23 11:00] VITALS: BP 158/36
--- NOTE | 2020-01-23 12:36 | NUR ---
RESP UL ON 02 3L NC. LEFT ARM IV SL. TELEMETRY SR 68. WILL CONT. PLAN OF CARE.
[2020-01-23 15:00] VITALS: BP 136/66
--- NOTE | 2020-01-23 17:36 | NUR ---
SCD'S PLACED BILATERALLY ON PT'S LEGS.
[2020-01-23 20:00] VITALS: BP 158/67
[2020-01-24 05:06] LABS: BASOPHILS 0.3 % (0-2); IMMATURE GRANULOCYTES 0.1 % (0-5); LYMPHOCYTES 18.2 % (15-50); MCH 27.5 pg (26.0-34.0); MCHC 32.3 g/dL (31.0-37.0); MCV 85.4 fL (80.0-100.0); MEAN PLATELET VOLUME 10.5 fL (7.4-10.4); NEUTROPHILS 64.4 % (40-80); PLATELET COUNT 220 10x3/uL (130-400); RBC 3.63 10x6/uL (4.00-5.40); RDW 14.6 % (11.5-14.5)
[2020-01-24 05:19] LABS: ALBUMIN 3.3 g/dL (3.4-5.0); ANION GAP 13.4 mmol/L (8-16); BILIRUBIN - TOTAL 0.34 mg/dL (0.2-1.3); CALCIUM 8.5 mg/dL (8.5-10.1); CARBON DIOXIDE 20.4 mmol/L (21.0-32.0); CREATININE - SERUM 2.1 mg/dL (0.6-1.3); MAGNESIUM - SERUM 2.2 mg/dL (1.8-2.4); POTASSIUM - SERUM 4.8 mmol/L (3.5-5.1); PROTEIN - SERUM 6.8 g/dL (6.4-8.2)
[2020-01-24 09:00] VITALS: BP 160/73
[2020-01-24] MEDS ORDERED: MINIPRESS 5 MG C5 MG PO (09:19)
[2020-01-24] MEDS ORDERED: HYDROCHLOROTHIA25 MG PO (09:20)
[2020-01-24] MEDS ORDERED: OMNICEF300 MG PO (14:01)
--- NOTE | 2020-01-24 14:36 | NUR ---
GAVE 650MG OF TYLENOL FOR PAIN LEVEL OF 6/10. PT BEING D/C WAITING ON D/C ORDERS.
--- NOTE | 2020-01-24 16:03 | NUR ---
PROVIDED VERBAL AND WRITTEN DISCHARGE TEACHING TO PT AND DAUGHTER, BOTH VERBALIZED UNDERSTANDING REGARDING TEACHING. D/C LT FA IV WITH CATHETER TIP INTACT. HEART MONITOR REMOVED AND TAKEN TO COMPUTER TECHNOLOGY TRAINER. 02 93% ON RA. PT LEFT UNIT VIA WHEELCHAIR WITH ALL BELONGINGS, ACCOMPANIED BY DAUGHTER, NAD NOTED.
== END 2020-01-24 16:06 | disposition home or self-care (01) | DRG 193 ==
LOC: D.ER 23:35 → D.M2 01-22 00:21 → OBSVTIME 01-22 00:21 → D.M2 01-22 15:17
PROVIDERS: Family Medicine; ADMIT Family Medicine Adult Medicine; ATTEND Family Medicine Adult Medicine
DX: J18.9 Pneumonia, unspecified organism (principal); J96.01 Acute respiratory failure with hypoxia; I25.110 Atherosclerotic heart disease of native coronary artery with unstable angina pectoris; E87.1 Hypo-osmolality and hyponatremia; I13.0 Hypertensive heart and chronic kidney disease with heart failure and stage 1 through stage 4 chronic kidney disease, or unspecified chronic kidney disease; D63.1 Anemia in chronic kidney disease; E11.22 Type 2 diabetes mellitus with diabetic chronic kidney disease; N18.3 Chronic kidney disease, stage 3 (moderate); E11.65 Type 2 diabetes mellitus with hyperglycemia; E78.5 Hyperlipidemia, unspecified; K21.9 Gastro-esophageal reflux disease without esophagitis; M19.90 Unspecified osteoarthritis, unspecified site; I50.9 Heart failure, unspecified; Z86.73 Personal history of transient ischemic attack (TIA), and cerebral infarction without residual deficits

== ENCOUNTER → 2020-04-15 10:50 | Outpatient (CLI) | payer MEDICARE, MEDICAID ==
[~2020-04-15 10:50] MED LIST changes: +HYDROCHLOROTHIA25 MG PO; +OMNICEF300 MG PO
== END | disposition home or self-care (01) ==
LOC: D.HCCECHO 10:50
PROVIDERS: ATTEND Internal Medicine Cardiovascular Disease
DX: I10 Essential (primary) hypertension (principal)

== ENCOUNTER 2020-10-07 15:37 | Emergency (ER) | payer MEDICARE, MEDICAID ==
[~2020-10-07] VITALS: Ht 167.6 cm; Wt 98.6 kg
[2020-10-07] MEDS ORDERED: HUMALOG 30100 UNITS/ SC (15:58)
[2020-10-07] MEDS ORDERED: PEPCID AC20 MG PO (15:58)
[2020-10-07 15:59] VITALS: Ht 167.6 cm; Wt 98.6 kg
[2020-10-07 18:04] LABS: BASOPHILS 0.5 % (0-2); EOSINOPHILS 9.1 % (0-7); HEMOGLOBIN 9.9 g/dL (12-16); IMMATURE GRANULOCYTES 0.3 % (0-5); LYMPHOCYTE ABS# 1.44 10x3/uL (1.18-3.74); LYMPHOCYTES 23.8 % (15-50); MCH 28.5 pg (26.0-34.0); MCHC 34.1 g/dL (31.0-37.0); MCV 83.6 fL (80.0-100.0); MEAN PLATELET VOLUME 11.6 fL (7.4-10.4); MONOCYTES 8.3 % (2-11); NEUTROPHIL ABS# 3.51 10x3/uL (1.56-6.13); PLATELET COUNT 253 10x3/uL (130-400); RBC 3.47 10x6/uL (4.00-5.40); WBC 6.1 10x3/uL (4.8-10.8)
[2020-10-07 18:08] LABS: ANION GAP 9.5 mmol/L (8-16); CALCIUM 8.4 mg/dL (8.5-10.1); CARBON DIOXIDE 24.8 mmol/L (21.0-32.0); CREATININE - SERUM 2.8 mg/dL (0.6-1.3); POTASSIUM - SERUM 5.3 mmol/L (3.5-5.1)
[2020-10-07 18:14] LABS: ALBUMIN 2.7 g/dL (3.4-5.0); BILIRUBIN - TOTAL 0.43 mg/dL (0.2-1.3); PROTEIN - SERUM 6.5 g/dL (6.4-8.2)
[2020-10-07 20:03] VITALS: BP 160/70
== END 2020-10-07 20:31 | disposition home or self-care (01) ==
LOC: D.ER 15:37
PROVIDERS: Emergency Medicine
DX: I10 Essential (primary) hypertension (principal); R51.9 Headache, unspecified; Z86.73 Personal history of transient ischemic attack (TIA), and cerebral infarction without residual deficits; E11.40 Type 2 diabetes mellitus with diabetic neuropathy, unspecified; K21.9 Gastro-esophageal reflux disease without esophagitis; Z79.4 Long term (current) use of insulin